=== PATIENT | male | born 1950 | race Caucasian/White ===

== ENCOUNTER 2020-04-06 11:05 | Emergency (ER) | payer MEDICARE ==
[~2020-04-06] VITALS: Ht 193 cm; Wt 113.6 kg
[2020-04-06] MEDS ORDERED: ATROPINE INJECTION 1 MG/10 ML SYR (ABBOTT) INJ ONE (11:11)
[2020-04-06] MEDS ORDERED: CATHETER FLUSH 10 ML SYR IV ONE (11:11)
[2020-04-06] MEDS ORDERED: ETOMIDATE IV SOLN 20 MG/10 ML VIAL IV ONE (11:11)
[2020-04-06] MEDS ORDERED: EPINEPHrine 0.1 MG/ML 10 ML (HOSPIRA) SYR INJ ONE (11:11)
[2020-04-06] MEDS ORDERED: SODIUM BICARB 8.4% 50 MEQ/50 ML (ABBOTT) SYR INJ ONE (11:11)
[2020-04-06] MEDS ORDERED: CALCIUM CHLORIDE 1 GM/10 ML (IMS) SYR INJ ONE (11:11)
[2020-04-06] MEDS ORDERED: NS 250 ML (IVPB) BAG IV ONE (11:11)
[2020-04-06] MEDS ORDERED: ROCURONIUM 10 MG/ML 5 ML SYRINGE IV ONE (11:11)
[2020-04-06] MEDS ORDERED: DEXTROSE 50% 50 ML (IMS) SYR INJ ONE (11:11)
[2020-04-06] MEDS ORDERED: PROPOFOL DRIP (ICU) 100 ML IV ONE (11:20)
[2020-04-06] MEDS ORDERED: GLUCAGON EMERGENCY 1 MG/KIT ONE (11:23)
[2020-04-06] MEDS ORDERED: inSUlin (REGULAR) HUMAN 1 UNIT/0.01 ML (CHARGE PER UNIT) ONE (11:26)
--- NOTE | 2020-04-06 11:28 | NUR ---
FINGER STICK GLUCOSE, 327
[2020-04-06] MEDS ORDERED: ASPIRIN 325 MG (5 GR) TABLET ONE (11:37)
[2020-04-06 11:38] LABS: BASOPHILS % (AUTO) 0 % (0-10); EOSINOPHILS # (AUTO) 0.1 10^3/uL (0.0-0.3); EOSINOPHILS % (AUTO) 1 % (0-10); HEMATOCRIT 38 % (40-54); HEMOGLOBIN 12.1 G/DL (13.3-17.7); LYMPHOCYTES # (AUTO) 1.8 X 10^3 (1.0-4.0); LYMPHOCYTES % (AUTO) 28 % (12-44); MEAN CORPUSCULAR HEMOGLOBIN 29 PG (25-34); MEAN CORPUSCULAR HGB CONC 32 G/DL (32-36); MEAN CORPUSCULAR VOLUME 91 FL (80-99); MEAN PLATELET VOLUME 11.8 FL (7.4-10.4); MONOCYTES # (AUTO) 0.6 X 10^3 (0.0-1.0); MONOCYTES % (AUTO) 10 % (0-12); NEUTROPHILS # (AUTO) 3.9 X 10^3 (1.8-7.8); NEUTROPHILS % (AUTO) 60 % (42-75); PLATELET COUNT 99 10^3/uL (130-400); WHITE BLOOD COUNT 6.4 10^3/uL (4.3-11.0)
[2020-04-06 11:42] LABS: ABG BASE EXCESS -13.6 MMOL/L (-2.5-2.5); ABG OXYGEN SATURATION 99 % (94-100); ABG PCO2 41 MMHG (35-45); ABG PO2 161 MMHG (79-93); ABG TCO2 15.5 MMOL/L (21.0-31.0)
[2020-04-06 11:43] LABS: ALLENS TEST YES-POS; INSPIRED O2 100%; PATIENT TEMP 94.4; VENTILATOR YES
[2020-04-06] MEDS ORDERED: ceFAZolin INJECTION 1,000 MG ONE (11:44)
[2020-04-06] MEDS ORDERED: WATER (STERILE) FOR INJECTION 10 ML ONE (11:44)
[2020-04-06] MEDS ORDERED: DOBUTamine DRIP 250 ML IV ONE ×2 (11:48→13:02)
[2020-04-06 11:49] LABS: ALBUMIN 3.4 GM/DL (3.2-4.5); CHLORIDE 92 MMOL/L (98-107); POTASSIUM 4.7 MMOL/L (3.6-5.0); SODIUM 126 MMOL/L (135-145)
[2020-04-06 11:51] LABS: CALCIUM 8.3 MG/DL (8.5-10.1)
[2020-04-06 11:52] LABS: FIBRIN DEGRADATION PRODUCTS 1.32 UG/ML (0.00-0.49); GLUCOSE 335 MG/DL (70-105); INR 1.6 (0.8-1.4); PROTHROMBIN TIME PATIENT 19.8 SEC (12.2-14.7); TOTAL PROTEIN 7.7 GM/DL (6.4-8.2)
[2020-04-06 11:53] LABS: CARBON DIOXIDE 16 MMOL/L (21-32)
[2020-04-06 11:54] LABS: BILIRUBIN,TOTAL 1.7 MG/DL (0.1-1.0)
[2020-04-06 11:55] LABS: ALKALINE PHOSPHATASE 162 U/L (40-136); CREATININE SERUM 4.32 MG/DL (0.60-1.30); GFR ESTIMATED 14
[2020-04-06 11:56] LABS: ABG PH 7.14 (7.37-7.43)
[2020-04-06 11:56] LABS: BUN/CREATININE RATIO 11
[2020-04-06] MEDS ORDERED: ENOXAPARIN 60 MG/0.6 ML (LOVENOX) SYR ONE (11:56)
[2020-04-06] MEDS ORDERED: ENOXAPARIN 100 MG/1 ML (LOVENOX) SYR ONE (11:56)
[2020-04-06 11:58] LABS: ALANINE AMINOTRANSFERASE 57 U/L (0-55); MAGNESIUM 2.5 MG/DL (1.6-2.4)
--- NOTE | 2020-04-06 11:59 | Diagnostic Imaging Report ---
INDICATION: Post Code. TIME OF EXAM: 11:49 a.m. FINDINGS: ET tube appears to have the tip well above the jeff just below the level of the clavicular heads. There also appears to be an NG tube present. There is central congestion. There may be some minimal infiltrate in the right upper lobe and left upper lobe. There is no effusion or pneumothorax seen. IMPRESSION: Central congestion and patchy bilateral upper lobe infiltrates. ET tube and NG tube have been placed. Dictated by: Dictated on workstation # [id number]
[2020-04-06 12:11] LABS: ABG BASE EXCESS -15.3 MMOL/L (-2.5-2.5); ABG OXYGEN SATURATION 99 % (94-100); ABG PCO2 24 MMHG (35-45); ABG PO2 127 MMHG (79-93); ABG TCO2 11.6 MMOL/L (21.0-31.0)
[2020-04-06 12:12] LABS: ALLENS TEST YES-POS; INSPIRED O2 100%
[2020-04-06 12:13] LABS: ABG PH 7.26 (7.37-7.43)
[2020-04-06 12:14] LABS: PATIENT TEMP 94.4; VENTILATOR YES
--- NOTE | 2020-04-06 12:18 | Diagnostic Imaging Report ---
EXAMINATION: Chest radiograph, portable AP view. DATE: 04/06/2020 12:13 PM. INDICATION: 69-year-old male, code. Central line placement. COMPARISON: Chest radiograph April 06, 2020 at 1149 hours. FINDINGS: The right internal jugular central venous line is newly placed and has the tip overlying the upper SVC. The endotracheal tube tip is 4.7 cm above the jeff. The nasogastric tube extends below the included field of view. Stable overall appearance of the cardiomediastinal silhouette. There is material overlying the patient which does somewhat limit the exam. There is no identified pneumothorax. There are interstitial opacities bilaterally with somewhat of a mid and upper lung zone predominance which is essentially unchanged since the comparison exam. There are radiodensities projecting over the region of the stomach of uncertain exact etiology. IMPRESSION: 1. Newly placed right internal jugular central venous line tip overlying the upper SVC. 2. Additional support lines and tubes as above. 3. Redemonstrated and grossly unchanged interstitial opacities bilaterally with a mid and upper lung zone predominance. Edema and other alveolar consolidative processes are in the differential diagnosis. Dictated by: Dictated on workstation # [id number]
[2020-04-06] MEDS ORDERED: NS IV 1000 ML 1,000 ML ONE (12:29)
[2020-04-06] MEDS ORDERED: EPINEPHrine INJECTION 1 MG/ML AMP ONE (12:39)
[2020-04-06] MEDS ORDERED: NS (IVPB) 250 ML ONE (12:39)
[2020-04-06 12:45] VITALS: BP 142/83
[2020-04-06] MEDS ORDERED: EPINEPHrine 1 MG INJECTION 4 MG in NS (IVPB) 246 ML IV SCH (13:00)
[2020-04-06] MEDS ORDERED: EPINEPHrine 1 MG INJECTION 8 MG in NS (IVPB) 242 ML IV SCH (13:15)
--- NOTE | 2020-04-06 13:19 | NUR ---
REPORT TO HEATHER ORNELAS ER TO ROSALES CONTEH.
--- NOTE | 2020-04-06 13:29 | ED CPR ---
HPI-CPR General Chief Complaint: Code Blue Stated Complaint: FALL Nursing Triage Note: [facility] IN WITH PATIENT FROM HOME, REPORTS HE PASSED OUT IN BR AND HIT HIS HEAD. STATES HE HAD NOT BEEN FEELING WELL FOR PAST FEW DAYS AND RECENT HOSPITALIZATION OF FLUID RETENTION AND SWOLLEN SCROTUM, SOB, AND EDEMA. EMS 20 GA RT WRIST 500ML NS INFUSING, REPORTS ASYSTOLE AND CPR, ROSC, PT IN PEA. CYANOTIC. 1 MG EPI PER EMS. Sepsis Screen: No Definite Risk Source of Information: Patient, Spouse Exam Limitations: Other (clinical condition) History of Present Illness Date Seen by Provider: Apr 06, 2020 Time Seen by Provider: 11:05 Initial Comments Patient presents ER by EMS in acute respiratory distress. Per EMS he saw double and passed out. They said they had a heart rate in the 30s. Patient does not offer up any history as he is agonal breathing and cyanotic. Allergies and Home Medications Allergies Coded Allergies: No Allergy Information Available (Unverified , 04/06/20) Patient Home Medication List Home Medication List Reviewed: Yes Review of Systems Review of Systems Constitutional: see HPI (review of systems unable to be obtained from patient) Past Mwoswue-Ooscpe-Ljfuld Hx Patient Social History Recreational Drug Use: No Smoking Status: Never a Smoker Recent Foreign Travel: No Contact w/Someone Who Travel: No Recent Infectious Disease Expo: No Physical Exam Vital Signs Vital Signs - First Documented 04/06/20 04/06/20 04/06/20 11:05 11:46 12:45 Temp 34.6 Pulse 72 Resp 18 B/P (MAP) 136/93 (107) Pulse Ox 68 O2 Delivery Ambu Bag O2 Flow Rate 21.00 FiO2 100 Capillary Refill : Greater Than 3 Seconds Height, Weight, BMI Height: '" Weight: lbs. oz. kg; 30.00 BMI Method: General Appearance: Severe Distress HEENT: No Moist Mucous Membranes; Other (pupils 2 mm bilateral nonreactive) Neck: Full Range of Motion, Supple Respiratory: Lungs Clear, Accessory Muscle Use, Respiratory Distress (agonal breathing, pain and cyanosis) Cardiovascular: Bradycardia (35), Other (and same peripheral pulses) Gastrointestinal: Abnormal Bowel Sounds Extremity: Other (several wounds on the feet consistent with peripheral arterial disease) Neurologic/Psychiatric: Other (obtunded, GCS 7) Skin: Cyanosis Procedures/Interventions Lumen: triple Central Line Procedure: betadine prep (chlorhexidine prep), sterile drapes ap plied, sterile dressing applied Position: internal jugular (R) Anesthesia: Lidocaine Volume Anesthetic (ccs): 3 Complications: none Post Position: sutured, good blood return, position confirmed w/ CXR Emergent consent obtained. He was positioned in the usual format and using the usual sterile garment and drapes the patient was dressed out. The skin was thoroughly cleaned with the supplied chlorhexidine prep. After the prep and dried a sterile drape was placed. The 20 cm 7 [place] triple-lumen catheter was f lushed with sterile saline. We used ultrasound guidance to pass the introducer needle into the right internal jugular without difficulty. A guidewire was placed easily without difficulty. No ectopy was seen on the monitor. The supplied 11 blade scalpel was used to make a 2 mm incision at the inferior portion of the introducer needle. The introducer needle was replaced with the dilator. The dilator was taken out and the patient had the central lumen of the triple lumen catheter threaded over the guidewire and placed at 15 cm. The guidewire was removed and the triple-lumen catheter was stitched in place using the supplied braided stitch at 2 different points. The catheter withdrew blood and flushed easily. A sterile dressing was placed over the catheter. The patient tolerated the procedure well. A chest x-ray was obtained that demonstrated no pneumothorax and a new interval central catheter over the shadow of the right internal jugular down the superior vena cava and terminating just proximal to the right atria. Reason for Intubation: respiratory failure Date of ETT Placement: Apr 06, 2020 Time of ETT Placement: 11:15 Intubation Method: orotracheal Tube Size: 7.5 Medications: Etomidate (40mg), Rocuronium (100 mg) Positive End Tide CO2: Yes Breath Sounds after Intubation: bilateral-equal Intubation Complications: no complications Post Intubation Xray: Yes satisfactorily placed ET tube in the trachea The patient received a second dose of etomidate and rocuronium because the first dose failed to produce sedation and he was continuing to struggle and fight despite both the medications applied. GCS 5 with -2 points for pupils. CPR: 3 episodes of CPR. Defibrillation not indicated. See nursing notes for times. Progress/Results/Core Measures Results/Orders Lab Results Laboratory Tests Test 04/06/20 11:30 04/06/20 11:34 04/06/20 11:58 04/06/20 12:02 Range/Units White Blood Count 6.4 4.3-11.0 10^3/uL Red Blood Count 4.21 L 4.35-5.85 10^6/uL Hemoglobin 12.1 L 13.3-17.7 G/DL Hematocrit 38 L 40-54 % Mean Corpuscular Volume 91 80-99 FL Mean Corpuscular Hemoglobin 29 25-34 PG Mean Corpuscular Hemoglobin Concent 32 32-36 G/DL Red Cell Distribution Width 16.1 H 10.0-14.5 % Platelet Count 99 L 130-400 10^3/uL Mean Platelet Volume 11.8 H 7.4-10.4 FL Neutrophils (%) (Auto) 60 42-75 % Lymphocytes (%) (Auto) 28 12-44 % Monocytes (%) (Auto) 10 0-12 % Eosinophils (%) (Auto) 1 0-10 % Basophils (%) (Auto) 0 0-10 % Neutrophils # (Auto) 3.9 1.8-7.8 X 10^3 Lymphocytes # (Auto) 1.8 1.0-4.0 X 10^3 Monocytes # (Auto) 0.6 0.0-1.0 X 10^3 Eosinophils # (Auto) 0.1 0.0-0.3 10^3/uL Basophils # (Auto) 0.0 0.0-0.1 10^3/uL Prothrombin Time 19.8 H 12.2-14.7 SEC INR Comment 1.6 H 0.8-1.4 Activated Partial Thromboplast Time 36 H 24-35 SEC D-Dimer 1.32 H 0.00-0.49 UG/ML Sodium Level 126 L 135-145 MMOL/L Potassium Level 4.7 3.6-5.0 MMOL/L Chloride Level 92 L 98-107 MMOL/L Carbon Dioxide Level 16 L 21-32 MMOL/L Anion Gap 18 H 5-14 MMOL/L Blood Urea Nitrogen 48 H 7-18 MG/DL Creatinine 4.32 H 0.60-1.30 MG/DL Estimat Glomerular Filtration Rate 14 BUN/Creatinine Ratio 11 Glucose Level 335 H 70-105 MG/DL Calcium Level 8.3 L 8.5-10.1 MG/DL Corrected Calcium 8.8 8.5-10.1 MG/DL Magnesium Level 2.5 H 1.6-2.4 MG/DL Total Bilirubin 1.7 H 0.1-1.0 MG/DL Aspartate Amino Transf (AST/SGOT) 102 H 5-34 U/L Alanine Aminotransferase (ALT/SGPT) 57 H 0-55 U/L Alkaline Phosphatase 162 H 40-136 U/L Troponin I < 0.028 <0.028 NG/ML Total Protein 7.7 6.4-8.2 GM/DL Albumin 3.4 3.2-4.5 GM/DL Blood Gas Puncture Site LR Blood Gas Patient Temperature 94.4 Arterial Blood pH 7.14 *L 7.37-7.43 Arterial Blood Partial Pressure CO2 41 35-45 MMHG Arterial Blood Partial Pressure O2 161 H 79-93 MMHG Arterial Blood HCO3 14 *L 23-27 MMOL/L Arterial Blood Total CO2 15.5 L 21.0-31.0 MMOL/L Arterial Blood Oxygen Saturation 99 94-100 % Arterial Blood Base Excess -13.6 L -2.5-2.5 MMOL/L [place] Test YES-POS Blood Gas Ventilator Setting YES Blood Gas Inspired Oxygen 100% Coronavirus 2019 (JAMMIE) Negative Negative Glucometer 262 H 70-110 MG/DL Test 04/06/20 12:04 04/06/20 13:40 04/06/20 13:46 04/06/20 14:00 Range/Units Blood Gas Puncture Site LR LR Blood Gas Patient Temperature 94.4 93.1 Arterial Blood pH 7.26 *L 6.95 *L 7.37-7.43 Arterial Blood Partial Pressure CO2 24 L 74 *H 35-45 MMHG Arterial Blood Partial Pressure O2 127 H 75 L 79-93 MMHG Arterial Blood HCO3 11 *L 17 *L 23-27 MMOL/L Arterial Blood Total CO2 11.6 L 19.1 L 21.0-31.0 MMOL/L Arterial Blood Oxygen Saturation 99 86 L 94-100 % Arterial Blood Base Excess -15.3 L -14.4 L -2.5-2.5 MMOL/L [place] Test YES-POS YES-POS Blood Gas Ventilator Setting YES YES Blood Gas Inspired Oxygen 100% 1% Glucometer 296 H 70-110 MG/DL Urine Color YELLOW Urine Clarity CLEAR Urine pH 6.0 5-9 Urine Specific [place] 1.025 H 1.016-1.022 Urine Protein 3+ H NEGATIVE Urine Glucose (UA) 1+ H NEGATIVE Urine Ketones NEGATIVE NEGATIVE Urine Nitrite NEGATIVE NEGATIVE Urine Bilirubin NEGATIVE NEGATIVE Urine Urobilinogen 1.0 < = 1.0 MG/DL Urine Leukocyte Esterase 2+ H NEGATIVE Urine RBC (Auto) 3+ H NEGATIVE Urine RBC 50-100 H /HPF Urine WBC TNTC H /HPF Urine Squamous Epithelial Cells 5-10 /HPF Urine Crystals PRESENT H /LPF Urine Amorphous Sediment MOD BIANCA URATES H /LPF Urine Bacteria LARGE H /HPF Urine Casts NONE /LPF Urine Mucus NEGATIVE /LPF Urine Culture Indicated YES My Orders Orders - BREANA ESQUIVEL Propofol Drip (Icu) (Diprivan Drip (Icu) (04/06/20 11:20) Glucagon Emergency Kit (Glucagon Emergen (04/06/20 11:23) Insulin (Regular) Human (Novolin R (Per (04/06/20 11:26) Arterial Blood Gas (04/06/20 11:34) Arterial Blood Draw (04/06/20 ) Aspirin Tablet (Aspirin Tablet) (04/06/20 11:37) Cefazolin Injection (Ancef Injection) (04/06/20 11:44) Water (Sterile) For Injection (Sterile W (04/06/20 11:44) Dobutamine Drip (Dobutrex Drip) (04/06/20 11:48) Enoxaparin Injection (Lovenox Injection) (04/06/20 11:56) Enoxaparin Injection (Lovenox Injection) (04/06/20 11:56) Arterial Blood Gas (04/06/20 12:04) Dexamethasone Injection (Decadron Injec (04/06/20 12:14) Ns Iv 1000 Ml (Sodium Chloride 0.9%) (04/06/20 12:29) Epinephrine 1 Mg Injection (Adrenalin I (04/06/20 12:39) Ns (Ivpb) (Sodium Chloride 0.9%) (04/06/20 12:39) Ns (Ivpb) (Sodium C... W/Epinephrine 1 (04/06/20 13:00) Dobutamine Drip (Dobutrex Drip) (04/06/20 13:02) Ns (Ivpb) (Sodium C... W/Epinephrine 1 (04/06/20 13:15) Accucheck Stat ONCE (04/06/20 13:32) Arterial Blood Draw (04/06/20 ) Arterial Blood Gas (04/06/20 13:59) Lactated Ringers (Lr 1000 Ml Iv Solution (04/06/20 14:14) Sodium Bicarbonate 8.4% Vial (Sodium Bic (04/06/20 14:30) Ceftriaxone For Iv Use (Rocephin For I (04/06/20 14:19) Atropine Inj 10 Mg Syringe (Atropine In (04/06/20 11:11) Etomidate Injection (Amidate Injection) (04/06/20 11:11) Rocuronium 5 Ml Syringe (Rocuronium 5 Ml (04/06/20 11:11) Epinephrine Emergency Syringe (Epinephr (04/06/20 11:11) Sodium Bicarbonate 8.4% Syr (Sodium Bica (04/06/20 11:11) Ns (Ivpb) (Sodium Chloride 0.9%) (04/06/20 11:11) Calcium Chloride 10% Injection (Calcium (04/06/20 11:11) D50w (Emergency) Syringe (Dextrose 50% 5 (04/06/20 11:11) Sodium Chloride Flush (Catheter Flush Sy (04/06/20 11:11) Ceftriaxone For Iv Use (Rocephin For I (04/06/20 15:30) Alteplase (Activase) (Activase Injection (04/06/20 16:00) Post Thrombolytic Adminstratio (04/06/20 15:46) Lactated Ringers (Lr 1000 Ml Iv Solution (04/06/20 16:00) Lactated Ringers (Lr 1000 Ml Iv Solution (04/06/20 16:00) Arterial Blood Draw (04/06/20 ) Medications Given in ED Current Medications Medications Dose Ordered Sig/Alcira Route Start Time Stop Time Status Last Admin Dose Admin Aspirin 325 mg STK-MED ONCE .ROUTE 04/06/20 11:37 04/06/20 11:42 DC 04/06/20 11:22 325 MG Cefazolin Sodium 1,000 ml @ ud STK-MED ONCE .ROUTE 04/06/20 11:44 04/06/20 11:49 DC 04/06/20 11:50 100 MLS/HR Ceftriaxone Sodium 1000 mg/ Sterile Water 10 ml @ 200 mls/hr ONCE ONCE IV 04/06/20 15:30 04/06/20 15:32 DC 04/06/20 14:24 200 MLS/HR Dexamethasone Sodium Phosphate 4 mg STK-MED ONCE .ROUTE 04/06/20 12:14 04/06/20 12:19 DC 04/06/20 12:20 4 MG Dobutamine HCl/ Dextrose 250 ml @ ud STK-MED ONCE IV 04/06/20 11:48 04/06/20 11:52 DC 04/06/20 11:54 16.9 MLS/HR Dobutamine HCl/ Dextrose 250 ml @ ud STK-MED ONCE IV 04/06/20 13:02 04/06/20 13:06 DC 04/06/20 13:28 274 MLS/HR Enoxaparin Sodium 60 mg STK-MED ONCE .ROUTE 04/06/20 11:56 04/06/20 12:02 DC 04/06/20 12:00 60 MG Enoxaparin Sodium 100 mg STK-MED ONCE .ROUTE 04/06/20 11:56 04/06/20 12:02 DC 04/06/20 12:00 100 MG Epinephrine HCl 1 mg STK-MED ONCE .ROUTE 04/06/20 12:39 04/06/20 12:44 DC 04/06/20 12:47 2 MG Glucagon 1 mg STK-MED ONCE .ROUTE 04/06/20 11:23 04/06/20 11:28 DC 04/06/20 11:29 1 MG Insulin Human Regular 1 unit STK-MED ONCE .ROUTE 04/06/20 11:26 04/06/20 11:32 DC 04/06/20 11:30 1 UNIT Propofol 100 ml @ ud STK-MED ONCE IV 04/06/20 11:20 04/06/20 11:25 DC 04/06/20 11:46 13.7 MLS/HR Sodium Bicarbonate 50 meq ONCE ONCE IV 04/06/20 14:30 04/06/20 14:31 DC 04/06/20 14:16 50 MEQ Sodium Chloride 250 ml @ ud STK-MED ONCE .ROUTE 04/06/20 12:39 04/06/20 12:45 DC 04/06/20 12:47 847 MLS/HR Sodium Chloride 1,000 ml @ STK-MED ONCE .ROUTE 04/06/20 12:29 04/06/20 12:34 DC 04/06/20 12:47 999 MLS/HR Sterile Water 10 ml @ STK-MED ONCE .ROUTE 04/06/20 11:44 04/06/20 11:49 DC 04/06/20 11:50 200 MLS/HR Vital Signs/I&O 04/06/20 04/06/20 04/06/20 04/06/20 11:05 11:46 11:54 12:45 Temp 34.6 Pulse 72 66 55 Resp 18 B/P (MAP) 136/93 (107) 164/135 92/62 Pulse Ox 68 O2 Delivery Ambu Bag O2 Flow Rate 21.00 FiO2 100 04/06/20 04/06/20 13:28 14:43 Temp 34.6 Pulse 89 66 Resp 15 B/P (MAP) 92/62 (72) Pulse Ox 79 O2 Delivery Mechanical Ventilator O2 Flow Rate 21.00 Blood Pressure Mean: 72 Initial ECG Impression Date: Apr 06, 2020 Initial ECG Impression Time: 11:28 Initial ECG Rate: 68 Initial ECG Rhythm: Normal Sinus Initial ECG Intervals: QT (472) Initial ECG Impression: Nonspecific Changes Initial ECG Comparisson: No Previous ECG Available Comment Left bundle branch block. EKG : EKG Time: 12:28 Rate: 81 Rhythm: Normal Sinus Intervals: QT (473) ECG Comparisson: Unchanged ECG Impression: Nonspecific Changes Comment Left Branch block without relevant ST elevation or depression. Diagnostic Imaging Diagonstic Imaging: Xray Plain Films/CT/US/NM/MRI: chest Comments [facility]. [place], [place] NAME: MANDO MEDINA [facility] REC#: [id number] PT STATUS: REG ER : 1950 PHYSICIAN: NARESH MCDONALD APRN ADMIT DATE: 04/06/20/ER Draft Date of Exam:04/06/20 CHEST 1 VIEW, AP/PA ONLY INDICATION: Post Code. TIME OF EXAM: 11:49 a.m. FINDINGS: ET tube appears to have the tip well above the jeff just below the level of the clavicular heads. There also appears to be an NG tube present. There is central congestion. There may be some minimal infiltrate in the right upper lobe and left upper lobe. There is no effusion or pneumothorax seen. IMPRESSION: Central congestion and patchy bilateral upper lobe infiltrates. ET tube and NG tube have been placed. Dictated on workstation # [id number] Dict: 04/06/20 1154 Trans: 04/06/20 1159 [id number] Interpreted by: TORSTEN AVILA MD Electronically signed by: Reviewed: Reviewed by Me Diagonstic Imaging: Xray Plain Films/CT/US/NM/MRI: chest Comments [facility] [place] [place] NAME: MANDO MEDINA [facility] REC#: [id number] PT STATUS: REG ER : 1950 PHYSICIAN: NARESH MCDONALD APRN ADMIT DATE: 04/06/20/ER Signed Date of Exam:04/06/20 CHEST 1 VIEW, AP/PA ONLY EXAMINATION: Chest radiograph, portable AP view. DATE: 04/06/2020 12:13 PM. INDICATION: 69-year-old male, code. Central line placement. COMPARISON: Chest radiograph April 06, 2020 at 1149 hours. FINDINGS: The right internal jugular central venous line is newly placed and has the tip overlying the upper SVC. The endotracheal tube tip is 4.7 cm above the jeff. The nasogastric tube extends below the included field of view. Stable overall appearance of the cardiomediastinal silhouette. There is material overlying the patient which does somewhat limit the exam. There is no identified pneumothorax. There are interstitial opacities bilaterally with somewhat of a mid and upper lung zone predominance which is essentially unchanged since the comparison exam. There are radiodensities projecting over the region of the stomach of uncertain exact etiology. IMPRESSION: 1. Newly placed right internal jugular central venous line tip overlying the upper SVC. 2. Additional support lines and tubes as above. 3. Redemonstrated and grossly unchanged interstitial opacities bilaterally with a mid and upper lung zone predominance. Edema and other alveolar consolidative processes are in the differential diagnosis. Dictated by: Dictated on workstation # [id number] Dict: 04/06/20 1214 Trans: 04/06/20 1329 [id number] Interpreted by: MISHA GONZALEZ MD Electronically signed by: MISHA GONZALEZ MD 04/06/20 6717 Reviewed: Reviewed by Me Consults #1: Consulting Physician: JACKSON URIBE MD Consults Notes Recommended dobutamine drip and transferred to [facility] Consults #2: Consulting Physician: GOLRIA MILLER DO Consults Notes Recommended immediate transfer to an appropriate trauma Center. Critical Care Note Critical Care Start Time: 11:05 Stop Time: 14:00 Total Time (minutes) 115 mins Progress Nursing notes for exact times and doses of medications. Initially we had very little history to go on but the patient was actually breathing so we made the decision to immediately intubate him. 100 mg of rocuronium and 40 mg of etomidate were necessary to get his jaw to relax. IV fluids were continued and a second IV access was made. Bag valve mask was used and got his oxygen sats up to 91%. Atropine was given with no effect. 7.5 cm ET tube was placed at 26 at the lips. Equal bilateral breath sounds were heard. OG tube was placed to suction and then 3 and 25 mg aspirin were crushed and placed through the tube. EKG did not demonstrate significant ST changes. He had left bundle-branch block. He has no history here at the hospital to compare to. Patient bradyed down to 35 and his blood pressure was soft so he was paced at 56 mA and rate of 70. Patient and lost pulse and compressions were initiated and a milligram of epinephrine was given. High quality CPR was given for EA until we did receive return of spontaneous circulation. Epinephrine drip was initiated and cardiac consultation was made. Dr. Uribe came to the room and examine the patient has we are placing a central line. He suggested dobutamine if we thought that the bradycardia was cardiac in origin. Dobutamine was initiated. Propofol for sedation had been started and halted. ABG was obtained showing good oxygenation despite poor O2 sats. This is because of the epinephrine. A second liter of fluids was ordered in addition to the 500 cc EMS had initiated. On p lacement of central line was felt that ultrasound showed clot in the superior vena cava. This is before the ABG were turned and he was suspected to still be hypoxic with poor end-tidal CO2 about 20-25 so a pulmonary embolism was suspected. 1 mg/kg Lovenox was given and Accu-Chek performed. Blood sugar was around 300 so 10 units of regular insulin were given. On the second code the patient was given calcium chloride through the central line as well as a shot of glucagon to help reverse beta blockers. After return of spontaneous circulation patient's heart rate was around 100 and the epinephrine drip was turned up to 0.5 mcg/kg/m. Dobutamine was maxed. Pacer was turned off. A repeat EKG showed no changes from previous EKG. Patient's temperature was low at 35 Celsius. This is a little bit suboptimal for post arrest hypothermia. Gentle warming using blankets. Because of the insertion of central line a gram of Ancef was given for likely. Chest x-ray demonstrated good placement of ET tube and OG. Repeat chest x-ray for central line and demonstrated good position. Second blood gas demonstrated improvement in his pH and all of his CO2 was blown off so we put him on the ventilator 18 respirations per minute, 550 tidal volume and PEEP 5. FiO2 was started at 100%. Third cardiac arrest resulted in high quality CPR and after 2 rounds of epinephrine we obtain return of spontaneous circulation. Epine phrine drip was increased to 1 mcg/kg/m. Dobutamine continued. Patient was not stable enough to go to CT scanner. TPA was called for but we held off giving it as the arrived and explained that he had passed out falling forward striking his head and so a head injury was now suspected. No external trauma was noted. We could not get him to the CT scanner for head either and since this was now a trauma 2 was determined that he needed to go elsewhere. We discussed this briefly with Dr. Miller, trauma surgeon on-call and he agreed to exfiltrate the patient. Dr. Uribe discovered that the patient was known to Dr. Newby and had recently had workup at [facility] for congestive heart failure and suggested we send him there. We spoke to [facility] ER and got an accepting physician. [facility] was summonsed and came and picked up the patient was now more stable on maxed out epinephrine and dobutamine drip. His blood pressure was coming up 140s to 160s systolic so we were starting to wean his epinephrine drip down to 0.8 mcg/kg/m by the time the air ambulance arrived. Patient was transported in good stable condition. It was noted he had a UTI on urinalysis and very poor urine output. A gram of Rocephin was given. Patient received 3-1/2 L of saline. Negative COVID screen. Put out about 5 cc of urine throughout his entire stay in the emergency room. Third ABG showed increasing CO2 and pH of 6.9 so an amp of bicarbonate was given. His PEEP was put to 10 cm water pressure and his rate was increased to 22. Departure Impression Primary Impression: Syncope and collapse Additional Impressions: Head injury due to trauma Qualified Codes: S09.90XA - Unspecified injury of head, initial encounter Cardiopulmonary arrest with successful resuscitation UTI (urinary tract infection) Qualified Codes: N30.01 - Acute cystitis with hematuria Disposition: XFER SHT-TRM HOSP Condition: Critical Transfer Transfer Reason: Exceeds level of care Time Spoke to Accepting Phy: 13:[address] Miller, ED Accepts the patient. Transfer Time: 14:45 Transfer Facility: [place], [place] Method of Transfer: Air ([facility]) Departure-Patient Inst. Referrals: JEFF PATEL (PCP) Primary Care Physician BREANA ESQUIVEL Apr 06, 2020 13:29
--- NOTE | 2020-04-06 13:41 | NUR ---
[id number] GLUCOSE FINGER STICK.
[2020-04-06 13:52] LABS: BILIRUBIN,URINE NEGATIVE (NEGATIVE); CLARITY,URINE CLEAR; COLOR,URINE YELLOW; GLUCOSE, URINE (UA) 1+ (NEGATIVE); KETONES,URINE NEGATIVE (NEGATIVE); LEUKOCYTE ESTERASE ,URINE 2+ (NEGATIVE); NITRITE,URINE NEGATIVE (NEGATIVE); PROTEIN,URINE 3+ (NEGATIVE)
[2020-04-06 14:05] LABS: ABG BASE EXCESS -14.4 MMOL/L (-2.5-2.5); ABG OXYGEN SATURATION 86 % (94-100); ABG PO2 75 MMHG (79-93); ABG TCO2 19.1 MMOL/L (21.0-31.0)
[2020-04-06 14:08] LABS: ABG PH 6.95 (7.37-7.43); ALLENS TEST YES-POS; INSPIRED O2 1%; PATIENT TEMP 93.1; VENTILATOR YES
[2020-04-06 14:09] LABS: ABG PCO2 74 MMHG (35-45)
[2020-04-06] MEDS ORDERED: LACTATED RINGERS 2,000 ML IV ONE (14:14)
[2020-04-06 14:16] LABS: RBC,URINE 50-100 /HPF; WBC,URINE TNTC /HPF
[2020-04-06 14:17] LABS: AMORPHOUS SEDIMENT,UR MOD AMOR URATES /LPF; BACTERIA,URINE LARGE /HPF
[2020-04-06] MEDS ORDERED: cefTRIAXone 1,000 MG IV (ROCEPHIN) VIAL ONE (14:19)
[2020-04-06] MEDS ORDERED: SODIUM BICARB 8.4% 50 MEQ/50 ML VIAL IV ONE (14:30)
[2020-04-06 14:43] VITALS: BP 92/62
[2020-04-06] MEDS ORDERED: cefTRIAXone FOR IV USE 1,000 MG in WATER (STERILE) FOR INJECTION 10 ML IV ONE (15:30)
[2020-04-06] MEDS ORDERED: ALTEPLASE 100 MG/VIAL (ACTIVASE) IV ONE (16:00)
[2020-04-06] MEDS ORDERED: LACTATED RINGERS 1,000 ML IV SCH ×2 (16:00)
== END 2020-04-06 14:47 | disposition short-term general hospital (02) ==
LOC: EDUNIT# 11:07 → ER 11:10
DX: I46.9 Cardiac arrest, cause unspecified (principal); S09.90XA Unspecified injury of head, initial encounter; R55 Syncope and collapse; N39.0 Urinary tract infection, site not specified; W18.39XA Other fall on same level, initial encounter
CPT/HCPCS: 31500; 36556; 36600; 51702; 71045; 80053; 81000; 82805; 82962; 83735; 84484; 85025; 85379; 85610; 85730; 87077; 87088; 87186; 92960; 93005; 99291; U0002; 36415; 87635